=== PATIENT | female | born 1955 | race Caucasian/White ===

== ENCOUNTER 2017-10-06 23:55 | Inpatient (IN) | payer OTHER ==
[2017-10-07 00:18] VITALS: BMI 28.3
--- NOTE | 2017-10-07 00:31 | C.PDOC ---
History Of Present Illness 62 year old female is brought to the ED for evaluation. Patient reports that while at homes she got into an argument and went to take some metformin pills. Patient denies actually taking the pills. Patient denies SI/HI at the present time, fever, chill, nausea. Time Seen by Provider: 10/07/17 00:31 Chief Complaint (Nursing): Psychiatric Evaluation History Per: Patient, EMS History/Exam Limitations: no limitations Onset/Duration Of Symptoms: Hrs Current Symptoms Are (Timing): Still Present Suicide/Self Injury Attempted (Context): Ingestion (questionable) Modifying Factor(s): None, Other (metformin) Severity: Mild Pain Scale Rating Of: 2 Associated Symptoms: Depression. denies: Suicidal Thoughts, Suicidal Plan Involuntary Hold By: None Recent travel outside of the [place]: No Additional History Per: Patient, EMS Past Medical History Reviewed: Historical Data, Nursing Documentation, Vital Signs Vital Signs: Last Vital Signs Temp 98.9 F 10/07/17 00:37 Pulse 95 H 10/07/17 00:37 Resp 19 10/07/17 00:37 BP 146/81 10/07/17 00:37 Pulse Ox 96 10/07/17 01:16 - Medical History PMH: HTN, Hyperlipidemia Surgical History: No Surg Hx Family History: States: Unknown Family Hx - Social History Hx Alcohol Use: No Hx Substance Use: No - Immunization History Hx Tetanus Toxoid Vaccination: No Hx Influenza Vaccination: No Hx Pneumococcal Vaccination: No Review Of Systems Constitutional: Negative for: Fever, Chills Cardiovascular: Negative for: Chest Pain, Palpitations Respiratory: Negative for: Cough, Shortness of Breath Gastrointestinal: Negative for: Nausea, Abdominal Pain Musculoskeletal: Negative for: Back Pain Skin: Negative for: Rash Neurological: Negative for: Weakness Psych: Positive for: Depression. Negative for: Suicidal ideation Physical Exam - Physical Exam Appears: Non-toxic, Other (depresses affect, cooperative) Skin: Warm, Dry Head: Normacephalic Eye(s): bilateral: Normal Inspection Oral Mucosa: Moist Neck: Supple Chest: Symmetrical Cardiovascular: Rhythm Regular Respiratory: No Rales, No Rhonchi, No Wheezing Gastrointestinal/Abdominal: Soft, No Tenderness, No Guarding, No Rebound Back: Normal Inspection Extremity: No Tenderness, No Swelling Extremity: Bilateral: Atraumatic, Normal Color And Temperature, Normal ROM Neurological/Psych: Oriented x3, Normal Speech Gait: Steady ED Course And Treatment - Laboratory Results Result Diagrams: 10/07/17 01:46 10/07/17 01:46 ECG: Interpreted By Me, Viewed By Me ECG Rhythm: Nonspecific Changes O2 Sat by Pulse Oximetry: 96 (ON RA) Pulse Ox Interpretation: Normal - Radiology CXR: Interpreted by Me, Viewed By Me CXR Interpretation: No: Infiltrates, Fracture, Pnemothorax Progress Note: Plan: - VBG. - EKG. - Labs. - CXR. - UA. - Crisis evaluation Disposition Discussed With Dr.: Lilia Flores Comment: accepted the pt on her service and took over the care at 3:26 AM Doctor Will See Patient In The: Hospital Counseled Patient/Family Regarding: Studies Performed, Diagnosis - Disposition Disposition: HOSPITALIZED Disposition Time: 00:31 Condition: FAIR Forms: [facility] (Taiwanese) - POA Present On Arrival: Poor Glycemic Control - Clinical Impression Clinical Impression: Major depression - Scribe Statement The provider has reviewed the documentation as recorded by the Scribe Tae Yin All medical record entries made by the Scribe were at my direction and personally dictated by me. I have reviewed the chart and agree that the record accurately reflects my personal performance of the history, physical exam, medical decision making, and the department course for this patient. I have also personally directed, reviewed, and agree with the discharge instructions and disposition. Decision To Admit - Pt Status Changed To: Hospital Disposition Of: Inpatient - Admit Certification Admit to Inpatient:: After my assessment, the patient will require hospitalization for at least two midnights. This is because of the severity of symptoms shown, intensity of services needed, and/or the medical risk in this patient being treated as an outpatient. - InPatient: Physician Admission Certification: I certify that this patient requires 2 or more midnights of care for the following reason:: After my assessment, the patient will require hospitalization for at least two midnights. This is because of the severity of symptoms shown, intensity of services needed, and/or the medical risk in this patient being treated as an outpatient. - . Bed Request Type: Psychiatry Admitting Physician: Lilia Flores Patient Diagnosis: Major depression
[2017-10-07 01:52] LABS: BASO # 0.1 K/uL (0.0-0.2); BASO % 0.9 % (0.0-2.0); EOS % 0.2 % (0.0-4.0); HEMOGLOBIN 12.5 g/dL (11.0-16.0); LYMPH # 1.4 K/uL (1.0-4.3); LYMPH % 11.3 % (20.0-40.0); MEAN CELL VOLUME 85.6 fL (81.0-99.0); MEAN CORPUSCULAR HEMOGLOBIN 29.2 pg (27.0-31.0); MEAN CORPUSCULAR HGB CONC 34.1 g/dL (33.0-37.0); MEAN PLATELET VOLUME 7.9 fL (7.2-11.7); MONO # 0.6 K/uL (0.0-0.8); MONO % 5.1 % (0.0-10.0); NEUT # 10.4 K/uL (1.8-7.0); NEUT % 82.5 % (50.0-75.0); RBC 4.27 Mil/uL (3.80-5.20); RED CELL DISTRIBUTION WIDTH 14.3 % (11.5-14.5); WHITE BLOOD COUNT 12.6 K/uL (4.8-10.8)
[2017-10-07 01:52] LABS: VENOUS BLOOD GAS BASE EXCESS -1.9 mmol/L (0.0-2.0); VENOUS BLOOD GAS PCO2 35 mmHg (40-60); VENOUS BLOOD GAS PO2 35 mm/Hg (30-55); VENOUS BLOOD PH 7.41 (7.32-7.43)
[2017-10-07] MEDS ORDERED: Sodium Chloride 0.9% 1,000 ML IV ONE ×2 (01:53→02:51)
[2017-10-07 01:57] LABS: SQUAMOUS EPITHIAL 2 /hpf (0-5); URINE BACTERIA RARE (<OCC); URINE BILIRUBIN NEGATIVE (NEGATIVE); URINE BLOOD NEGATIVE (NEGATIVE); URINE COLOR Straw (YELLOW); URINE GLUCOSE (UA) 3+ mg/dL (Normal); URINE PROTEIN 2+ mg/dL (NEGATIVE); URINE UROBILINOGEN NORMAL mg/dL (0.2-1.0)
[2017-10-07 02:15] LABS: URINE LEUKOCYTE ESTERASE 1+ Leu/uL (Negative)
[2017-10-07 02:16] LABS: URINE CLARITY Hazy (Clear)
[2017-10-07] MEDS ORDERED: Sodium Chloride 0.9% 1,000 ML ONE ×2 (02:35→03:44)
[2017-10-07 02:45] LABS: ACETAMINOPHEN < 10.0 ug/mL (10.0-30.0); SALICYLATE < 1.0 mg/dL 1
[2017-10-07 02:46] LABS: ALB/GLOB RATIO 1.3 (1.0-2.1)
[2017-10-07 02:48] LABS: ALBUMIN 4.7 g/dL (3.5-5.0); ALT/SGPT 24 U/L (9-52); AST/SGOT 30 U/L (14-36); BLOOD UREA NITROGEN 13 mg/dL (7-17); CALCIUM 9.3 mg/dl (8.6-10.4); GFR AFRICAN-AMERICAN > 60; GFR NON-AFRICAN AMERICAN > 60
[2017-10-07 02:55] LABS: BARBITURATES, UR NEGATIVE (NEGATIVE); BENZODIAZEPINES, UR NEGATIVE (NEGATIVE); OPIATES, UR NEGATIVE (NEGATIVE); PHENCYCLIDINE, UR NEGATIVE (NEGATIVE)
--- NOTE | 2017-10-07 04:24 | PCM.BM ---
Treatment Plan Problems - Problems identified on initial assessmt Suicidal Ideations Date Initiated: 10/07/17 Time Initiated: 04:19 Assessment reference: NA Status: Active Depression Date Initiated: 10/07/17 Time Initiated: 04:30 Assessment reference: NA Status: Active Treatment assets and liabiliti Patient Assests: cooperative, insightful, self-reliant, good support system, negotiates basic needs Patient Liabilities: relationship conflicts, dietary restrictions, language/ speech - Milieu Protocol Maintain good personal hygiene: daily Encourage regular showers, daily Remind patient to perform daily oral care, daily Assist patient to perform ADL's Maintain personal safety: every shift Educate patient to report safety concerns to staff, every shift Monitor environment for contraband/sharps Medication safety: Monitor for expected outcome, potential side effects: every shift, Assess barriers to learning: every shift, Assess readiness for medication education: every shift
[2017-10-07 04:29] VITALS: O2SAT 97
--- NOTE | 2017-10-07 06:11 | PCM.BM ---
Treatment Plan Problems - Problems identified on initial assessmt Suicidal Ideations Date Initiated: 10/07/17 Time Initiated: 06:09 Assessment reference: NA Status: Active Depression Date Initiated: 10/07/17 Time Initiated: 06:09 Assessment reference: NA Status: Active Treatment assets and liabiliti Patient Assests: cooperative, self-reliant, ADL independent, good support system , cognitively intact Patient Liabilities: relationship conflicts, dietary restrictions, medical problems (htn, uncontrolled diabetes ), language/speech (candice speaking only ) - Milieu Protocol Maintain good personal hygiene: daily Encourage regular showers, daily Remind patient to perform daily oral care, daily Assist patient to perform ADL's Conduct patient checks and document Observation sheet: Q15 minutes Maintain personal safety: every shift Educate patient to report safety concerns to staff, every shift Monitor environment for contraband/sharps Medication safety: Monitor for expected outcome, potential side effects: every shift, Assess barriers to learning: every shift, Assess readiness for medication education: every shift
--- NOTE | 2017-10-07 09:05 | RAD ---
PROCEDURE: CHEST RADIOGRAPH, 1 VIEW HISTORY: Detox/Psy COMPARISON: None available. FINDINGS: LUNGS: The lungs are well inflated and clear. PLEURA: No pneumothorax or pleural fluid seen. CARDIOVASCULAR: Normal. OSSEOUS STRUCTURES: No significant abnormalities. VISUALIZED UPPER ABDOMEN: Normal. OTHER FINDINGS: None. IMPRESSION: No active pulmonary disease.
--- NOTE | 2017-10-07 10:06 | PCM.PSYCH ---
Initial Psychiatric Evaluation - Initial Psychiatric Evaluation Type of Admission: Voluntary Legal Status: Capacity History of Present Illness and Precipitating Events: t. ia 62yr. female from [place], Pt was alert and oriented during this evaluation. It was reported that this pt has no previous mental health Hx, nor any substance abuse Hx. This pt was assessed with the help of a [facility] estimator and drafter. This pt was brought to the hospital by her daughter after it was reported to her by her sister, that her mother and Father had an argument and her Mother got very angry and took a hand full of pills. It was reported that this pt dropped some pills (metformins) and then scooped them up and did it again. It was also reported that her came to her aid and made her vomit some pills back up. Pt refused to say specifically what the argument was about but she admitted that an incident did take place. However she denied swallowing any pills. Pt denied being suicidal during the suicide assessment and during the evaluation. Pt said her strength is the love and care of her children. She said what ever she does, she does it very well. Pt denied having any weaknesses. Pt wanted to go home with her daughter. Dr. Flores wanted this admitted. Pt agreed to voluntary admission for her mental health, safety and care. [ End ] Current Medications: Active Medications Generic Name Dose Route Start Last Admin Trade Name Freq PRN Reason Stop Dose Admin Gabapentin 100 mg 10/07/17 10:00 Neurontin PO TID PASCUAL Hydroxyzine HCl 25 mg 10/07/17 06:24 Atarax PO Q6 PRN Anxiety Losartan Potassium 50 mg 10/07/17 10:00 Cozaar PO DAILY PASCUAL Multivitamins 1 tab 10/07/17 10:00 Hexavitamin PO DAILY PASCUAL Ondansetron HCl 4 mg 10/07/17 06:24 Zofran Tab PO Q8H PRN Nausea/Vomiting Pneumococcal Polyvalent Vaccine 0.5 ml 10/10/17 10:00 Pneumovax 23 Vaccine IM 10/10/17 10:01 .ONCE ONE Past Psychiatric History - Past Psychiatric History Previous Treatment History: None Pertinent Medical Hx (Current Medical&Sleep Prob, Allergies): Allergies Allergy/AdvReac Type Severity Reaction Status Date / Time No Known Allergies Allergy Verified 10/07/17 00:17 Gabapentin [Neurontin] 100 mg PO TID 10/07/17 Glyburide/Metformin HCl [Glyburide-Metformin 5-500 mg] 1 each PO BID 10/07/17 Losartan Potassium 50 mg PO DAILY 10/07/17 Multivitamin/Iron/Folic Acid [Certavite-Antioxidant Tablet] 1 each PO DAILY 05/26 Simvastatin 20 mg PO HS 10/07/17 Review of Systems - Review of Systems All systems: reviewed and no additional remarkable complaints except - Psychiatric Psychiatric: Anxiety, Irritability, Suicidal Ideation Mental Status Examination - Personal Presentation Personal Presentation: Looks stated age - Affect Affect: Constricted, Depressed - Motor Activity Motor Activity: Calm - Reliability in Providing Information Reliability in Providing Information: Fair - Speech Speech: Organized - Mood Mood: Depressed, Anxious - Formal Thought Process Formal Thought Process: No Impairment - Obsessions/Compulsions Obsessions: No Compulsions: No - Cognitive Functions Orientation: Person, Place, Situation, Time Sensorium: Alert Attention/Concentration: Attentive Abstract Thinking: Wrights Estimate of Intelligence: Below average Judgement: Imparied, as evidence by: Poor judgement, Imparied, as evidence by: Lack of insight into illness - Risk Risk: Suicidal, Diminished functioning - Strength & Assets Inventory Strength & Assets Inventory: Family support
[2017-10-07] MEDS: Multiple Vitamins Tab PO SCH (10:36)
[2017-10-07] MEDS ORDERED: traZODone 25 mg Tab PO SCH (22:00)
[2017-10-08 06:40] VITALS: RESP 18; TEMP 97.6
[2017-10-08 09:03] VITALS: BP 144/73; PULSE 69
[2017-10-08] MEDS: Multiple Vitamins Tab PO SCH (09:54)
--- NOTE | 2017-10-08 10:39 | PCM.PYCHDC ---
Mental Status Examination - Mental Status Examination Orientation: Person, Place, Situation, Time Memory: Intact Mood: Neutral Affect: Constricted Speech: Soft Attention: WNL Concentration: WNL Association: WNL Fund of Knowledge: WNL Formal Thought Process: No Impairment Description of patient's judgement and insight: good, fair Psychotic Thoughts and Behaviors: denies any AVH Suicidal Ideation: No Current Homicidal Ideation?: No Discharge Summary - Discharge Note Reason for Hospitalization: Pt. ia 62yr. [place] female from [place], Pt was alert and oriented during this evaluation. It was reported that this pt has no previous mental health Hx, nor any substance abuse Hx. This pt was assessed with the help of a [facility] eeg tech. This pt was brought to the hospital by her daughter after it was reported to her by her sister, that her mother and Father had an argument and her Mother got very angry and took a hand full of pills. It was reported that this pt dropped some pills (metformins) and then scooped them up and did it again. It was also reported that her came to her aid and made her vomit some pills back up. Pt refused to say specifically what the argument was about but she admitted that an incident did take place. However she denied swallowing any pills. Pt denied being suicidal during the suicide assessment and during the evaluation. Pt said her strength is the love and care of her children. She said what ever she does, she does it very well. Pt denied having any weaknesses. Pt wanted to go home with her daughter. Dr. Flores wanted this admitted. Pt agreed to voluntary admission for her mental health, safety and care. Laboratory Data: Abnormal Lab Results 10/07/17 10/08/17 16:26 07:17 POC Glucose (mg/dL) 92 72 Consultations:: List each consultation separately and include: 1. Reason for request. 2. Findings. 3. Follow-up Summary of Hospital Course include:: 1. Description of specific treatment plan utilized for patients during their course of treatmen. 2. Summarize the time- course for resolution of acute symptoms and/or regressed behaviors. 3. Describe issues identified and worked on during hospitalization. 4. Describe medication utilized. 5. Describe medical problems identified and treated. 6. Reassessment of suicide risk Summary of Hospital Course: During the course of her stay, patient (pt) started progressively improving and no longer remained irritable, depressed, and suicidal. Her mood and anxiety were improved and she started attending groups and meetings and started socializing. Patient denied any feelings of hopelessness, helplessness, and worthlessness, denied any problem with the sleep or appetite, denied suicidal ideation or homicidal ideation. Pt denied any auditory or visual hallucinations. She denied any withdrawal symptoms. Some changes were made in her current medications and patient was discharged on following medications. She tolerated these medications very well and denied any side effects. [facility] - Final Diagnosis (DSM 5) Condition upon Discharge: FAIR Disposition: HOME/ ROUTINE Follow-up Treatment Plan: Education: Pt was educated and counseled about the risks and benefits of taking and not taking medications. Pt was educated and counseled about the risks of drinking and abusing drugs. Pt was educated and counseled to go to the ER or call 911 if pt develop suicidal ideation or homicidal ideation, worsening of symptoms or severe side effects of the meds. Prescriptions/Medication Reconciliation: Sertraline [Zoloft] 25 mg PO DAILY #30 tab traZODone [Desyrel] 25 mg PO HS #30 tab - Smoking Cessation Smoking Cessation Medication prescribed: No - Antipsychotic Medications Pt discharged on 2 or more routine antipsychotic medications: No
[2017-10-10] MEDS ORDERED: Pneumococcal 23-Valent Vaccine IM ONE (10:00)
== END 2017-10-08 11:43 | disposition home or self-care (01) | DRG 426 ==
LOC: C.ER 23:55 → C.5E 10-07 03:25
PROVIDERS: ADMIT Psychiatry & Neurology Psychiatry; ATTEND Psychiatry & Neurology Psychiatry
DX: F32.9 Major depressive disorder, single episode, unspecified (principal); F41.9 Anxiety disorder, unspecified; E78.5 Hyperlipidemia, unspecified; I10 Essential (primary) hypertension

== ENCOUNTER 2018-08-14 07:07 | Day surgery (SDC) | payer OTHER ==
[~2018-08-14 07:07] MED LIST: Carbachol 0.01% IO ONE; Chondroitin/Hyaluronate Opth Syringe KIT (0.55 ml-0.5 ml) IO ONE; Hyaluronidase Human, Recombi 150 U/ML VIAL ONE; Lactated Ringer's 500 ML IV ONE; Lidocaine 2% MPF (5 ml) Inj ONE; Phenylephrine 2.5% Opht Soln OS SCH; Povidone Iodine Ophthalmic 5% Soln ONE; Tropicamide 1% Opht SOLUTION OS SCH
[2018-08-14 07:42] VITALS: RESP 18; BMI 26.8
[2018-08-14] MEDS ORDERED: Lactated Ringer's 500 ML IV ONE (07:50)
[2018-08-14] MEDS ORDERED: Midazolam 2 MG/2 ML VIAL ONE (08:35)
[2018-08-14] MEDS ORDERED: Propofol 10 mg/ml Inj (20 ML) ONE (08:35)
[2018-08-14] MEDS: Tobramycin/Dexamethasone OPHT OINT ONE ×2 (08:56→09:00)
[2018-08-14 09:24] VITALS: O2SAT 96
[2018-08-14 10:23] VITALS: BP 144/78; PULSE 67; TEMP 97.7
--- NOTE | 2018-08-14 18:22 | OP ---
PROCEDURE DATE: 08/14/2018 PREOPERATIVE DIAGNOSIS: Mature nuclear cataract, left eye. POSTOPERATIVE DIAGNOSIS: Mature nuclear cataract, left eye. OPERATIVE PROCEDURE: Cataract extraction with lens implant, left eye. ATTENDING: Joselito Arcos MD ANESTHESIA: Retrobulbar block. COMPLICATIONS: None. ESTIMATED BLOOD LOSS: Zero. PROCEDURE: The patient was brought to the operating room and properly identified. Anesthesia staff administered intravenous sedation and retrobulbar block was given to the surgical eye. The patient was then prepped and draped in the usual sterile fashion. Attention was turned to the surgical eye. A lid speculum was placed into interpalpebral fissure. Sitting temporally, two paracentesis incisions were made. The anterior chamber was filled with viscoelastic and a triplanar clear corneal incision was made. Using a cystitome, anterior capsular leaflet was created. Utrata forceps were used to create a continuous curvilinear capsulorrhexis. Balanced salt solution on a cannula was used to hydrodissect and hydrodelineate the lens. The lens was then phacoemulsified with no complications. Automated irrigation and aspiration was used to remove the cortex. Viscoelastic was used to deepen the anterior chamber. The lens was placed in the capsular bag. Automated irrigation and aspiration was used to remove the viscoelastic. The anterior chamber was filled with Miochol. The wounds were hydrated with balanced salt solution. There was noted to be no leak at the end of the case and the lens was well positioned. The lid speculum was removed. The eye was given antibiotics and steroids and covered with a patch and shield. The patient was returned to the recovery room in stable condition. Joselito Arcos MD
== END 2018-08-14 10:13 | disposition home or self-care (01) ==
LOC: C.SDS 07:07
PROVIDERS: ATTEND Ophthalmology
DX: H25.12 Age-related nuclear cataract, left eye (principal); I10 Essential (primary) hypertension; E78.5 Hyperlipidemia, unspecified; E11.9 Type 2 diabetes mellitus without complications
CPT/HCPCS: 66984; 82948; J2250; J2704; J3470; J7120; V2632